=== PATIENT | male | born 1945 | race Caucasian/White ===

== ENCOUNTER 2023-10-23 13:32 | Emergency (ER) | payer MEDICAID ==
[~2023-10-23] VITALS: Ht 180.3 cm; Wt 69.4 kg
[2023-10-23 14:26] LABS: BASOPHILS # (AUTO) 0.1 K/uL (0.0-0.2); BASOPHILS % (AUTO) 0.5 % (0.0-2.0); EOSINOPHILS # (AUTO) 0.4 K/uL (0.0-0.7); EOSINOPHILS % (AUTO) 3.4 % (0.0-6.0); HEMATOCRIT 41 % (39-51); LYMPHOCYTES # (AUTO) 1.7 K/uL (0.8-4.8); LYMPHOCYTES % (AUTO) 16.9 % (20.0-44.0); MEAN CORPUSCULAR HEMOGLOBIN 33 PG (26.0-33.0); MEAN CORPUSCULAR HGB CONC 34 g/dl (31.0-36.0); MEAN CORPUSCULAR VOLUME 95 fL (80-96); MONOCYTES # (AUTO) 0.9 K/uL (0.1-1.30); MONOCYTES % (AUTO) 8.2 % (2.0-12.0); NEUTROPHILS # (AUTO) 7.3 K/uL (1.8-8.9); PLATELET COUNT (AUTO) 160 K/uL (150-450); RED BLOOD CELL COUNT(AUTO) 4.29 MIL/uL (4.5-6.0); RED CELL DISTRIBUTION WIDTH 13.2 % (11.5-15.0); WHITE BLOOD COUNT (AUTO) 10.3 K/uL (4.3-11.0)
[2023-10-23 14:58] LABS: CARBON DIOXIDE 25 mmol/L (21-32); CHLORIDE 101 mmol/L (98-107); CREATININE 1.1 mg/dL (0.6-1.3); GLUCOSE 158 mg/dL (74-106); POTASSIUM 3.9 mmol/L (3.5-5.1); SODIUM SERUM 136 mmol/L (136-145); UREA NITROGEN, BLOOD 22 mg/dL (7-18)
[2023-10-23] MEDS ORDERED: NITR0.4T48 SL (15:27)
[2023-10-23] MEDS ORDERED: ROSU20TA32 PO (15:27)
[2023-10-23] MEDS ORDERED: HYDR12.55 PO (15:27)
[2023-10-23] MEDS ORDERED: CARV6.252 PO (15:27)
[2023-10-23] MEDS ORDERED: LOSA25TA27 PO (15:27)
[2023-10-23] MEDS ORDERED: CLOP75TA15 PO (15:27)
[2023-10-23] MEDS ORDERED: IV NS 0.9% 500 ML BAG IV ONE (20:00)
[2023-10-23 21:47] VITALS: BP 155/89; TEMP 98.4; O2SAT 95
== END 2023-10-23 21:48 | disposition short-term general hospital (02) ==
LOC: ER 13:35
DX: R55 Syncope and collapse (principal); I10 Essential (primary) hypertension; I25.2 Old myocardial infarction; Z88.0 Allergy status to penicillin; Z20.822 Contact with and (suspected) exposure to COVID-19
CPT/HCPCS: 99285; 71045; 87426; 93005 ×2; 85025; 80048; 36415; 84484; J7040